=== PATIENT | male | born 1975 | race Caucasian/White ===

== ENCOUNTER 2022-02-25 19:16 | Emergency (ER) | payer SELFPAY ==
[~2022-02-25] VITALS: Ht 188 cm; Wt 115.7 kg
[2022-02-25 19:31] VITALS: BP 145/62
--- NOTE | 2022-02-25 19:51 | NUR ---
LAYNE Nagy examining patient.
[2022-02-25] MEDS ORDERED: LIDOCAINE MPF 1% 10 MG/ML VIAL INJ ONE (20:05)
[2022-02-25] MEDS ORDERED: CEPH-588 PO (20:10)
--- NOTE | 2022-02-25 20:20 | NUR ---
LAYNE VIRK. PERFORMING PROCEDURE
--- NOTE | 2022-02-25 20:25 | NUR ---
46/M BIBS FROM HOME, C/O BIG TOE PAIN ON LEFT FOOT X6 DAYS. S/P CUTTING HIS NAILS AT HOME. SWELLING, TOE TENDER TO TOUCH, NO REDNESS OR DISCHARGE. AMBULATORY W/O ASSISTANCE. PMH: HORACE HUTTON
--- NOTE | 2022-02-25 20:32 | NUR ---
Patient discharged with v/s stable. Written and verbal after care instructions given and explained. Patient alert, oriented and verbalized understanding of instructions. Ambulatory with steady gait. All questions addressed prior to discharge. ID band removed. Patient advised to follow up with PMD. Rx of KEFLEX given. Patient educated on indication of medication including possible reaction and side effects. Opportunity to ask questions provided and answered. VSS, A/OX4, AMBULATORY, UNLABORED BREATHING, AND CALM DEMEANOR.
== END 2022-02-25 20:32 | disposition home or self-care (01) ==
LOC: MED 19:16
DX: L60.0 Ingrowing nail (principal)
CPT/HCPCS: 11730; 99284; J2001